=== PATIENT | female | born 1935 | race Two or more races ===

== ENCOUNTER 2017-10-08 18:14 | Emergency (ER) | payer MEDICARE, MEDICAID ==
--- NOTE | 2017-10-08 18:33 | UC ---
Ear Complaint HPI - HPI Summary HPI Summary: 82 year old female with ear pain . Some fever at home. No CP. No SOB. ? fever of 100 at [facility] and with a cough. Pt with severe AD. Daughter states otherwise doing well but concern for the ears. - History of Current Complaint Stated Complaint: FEVER,EAR PAIN Time Seen by Provider: 10/08/17 18:31 Hx Obtained From: Patient, Family/Energy Scheduler Onset/Duration: Gradual Onset Severity Initially: Moderate Severity Currently: Moderate - Allergies/Home Medications Allergies/Adverse Reactions: Allergies Allergy/AdvReac Type Severity Reaction Status Date / Time No Known Allergies Allergy Verified 10/08/17 18:33 PMH/Surg Hx/FS Hx/Imm Hx Previously Healthy: Yes Neurological History: Dementia - Social History Occupation: Retired Lives: With Family Review of Systems Constitutional: Fever ENT: Ear Ache Is Patient Immunocompromised?: No All Other Systems Reviewed And Are Negative: Yes Physical Exam Triage Information Reviewed: Yes Appearance: Well-Appearing, No Pain Distress, Well-Nourished Vital Signs Reviewed: Yes Eye Exam: Normal Eyes: Positive: Conjunctiva Clear ENT Exam: Normal ENT: Positive: Pharynx normal, TM bulging - wax as well L > R, TM dull - l Dental Exam: Normal Neck exam: Normal Neck: Positive: 1 Respiratory Exam: Normal Cardiovascular Exam: Normal Musculoskeletal Exam: Normal Neurological Exam: Normal Psychological Exam: Normal Skin Exam: Normal Ear Complaint Course/Dx - Differential Dx/Diagnosis Differential Diagnosis/HQI/PQRI: Otitis Externa, Otitis Media, URI Provider Diagnoses: Left AOM Discharge - Discharge Plan Condition: Good Disposition: HOME Prescriptions: Amoxicillin PO (*) [Amoxicillin 400 MG/5 ML SUSP*] 800 mg PO BID 10 Days #1 bottle Patient Education Materials: Ear Infection (ED) Referrals: Chris Henry PA [Primary Care Provider] - 4 Days
[2017-10-08 18:34] VITALS: BP 109/87
== END 2017-10-08 18:52 | disposition home or self-care (01) ==
LOC: UCCORT 18:14
DX: H66.92 Otitis media, unspecified, left ear (principal)
CPT/HCPCS: 99212; G0463